=== PATIENT | female | born 1940 | race Caucasian/White ===

== ENCOUNTER 2017-02-27 14:05 | Inpatient (IN) | payer OTHER ==
[~2017-02-27] VITALS: Ht 162.6 cm; Wt 69.5 kg
[~2017-02-27 14:05] MED LIST: ALBUAER9 INH; AMLO-110 PO; METF-384 PO; METO50TA7 PO; OXYB10TA PO
--- NOTE | 2017-02-27 14:34 | EMERGENCY ROOM VISIT NOTE ---
History Report prepared by Arlyn: Stu Bond Under the Supervision of: Dr. Jerardo Gross M.D. First contact with patient: 14:16 Chief Complaint: CARDIAC ASSESSMENT Stated Complaint: CARIAC SYMPTOMS Nursing Triage Summary: triage note; pt reports she was seen at [facility] ed and left there to come to [facility]. pt reports right neck pain since yesterday. daugher reports "her troponin levels were elevated there and they wanted to transfer her somewhere but she wanted to come here because her production quality analyst is dr linares, they said they could send all her information here after she got here you guys just had to contact them." History of Present Illness The patient is a 76 year old female who presents to the Emergency Room from [facility] ED for a persistent need for a cardiac assessment that was discovered yesterday. She notes that she was seen in the [facility] ED yesterday for a stiff neck that started 2 mornings ago, and it was discovered that the patient had elevated troponin levels, and was told that she needed to be to [facility] to have a cardiac catheterization. The patient opted to come here since Dr. Linares is her production quality analyst. She was given 4 Aspirin in [place] before she left. The patient says that she was told that she was having a heart attack, with a left bundle branch block. She states that she has no history of atrial fibrillation. However, the patient has been noted to have had heart issues since she was 10 years old. The patient says that she is currently having the neck pain, and can barely move her head. Any confusion was denied on behalf of the patient by the patient's daughter. The patient denies any chest pain. The patient says that she has a history of dislocated vertebrae in her neck. Per the patient's family, the patient has been a bit short of breath, but the patient has a mild history of COPD. The patient's security intelligence analyst found that the patient had 5 little spots on her lungs, but it was thought to be environmental and not metastasis. The patient's family states that the patient had a cardiac catheterization here many years ago. She has never smoked cigarettes. The patient states that she has not responded to Nitro well in the past. Source of History: patient, family Onset: Discovered yesterday Position: other (heart ) Quality: other (need for cardiac assessment - elevated troponin, LBBB) Timing: other (persistent) Associated Symptoms: + SOB, No chest pain Note: Associated symptoms: Neck stiffness. Confusion denied. Review of Systems See HPI for pertinent positives & negatives. A total of 10 systems reviewed and were otherwise negative. Past Medical & Surgical Medical Problems: (1) 2nd degree AV block (2) Dislocated cervical vertebra (3) Heart disease (4) Hx of cardiac cath Family History Family history omitted secondary to patient's advanced age. Social History Smoking Status: Never Smoker Marital Status: Occupation Status: retired Current/Historical Medications Scheduled Albuterol Hfa (Ventolin Hfa), 2 PUFFS INH Q4H Amlodipine (Norvasc), 5 MG PO DAILY Metformin Hcl (Glucophage), 1,000 MG PO BID Metoprolol Succ (Toprol Xl) (Toprol-Xl), 50 MG PO BID Oxybutynin Chloride Er (Ditropan Xl), 10 MG PO DAILY Rosuvastatin Calcium (Crestor), 5 MG PO QOD Miscellaneous Medications Letrozole (Femara), 2.5 MG PO Allergies Coded Allergies: Iodine (Verified Allergy, Unknown, HIVES, 07/01/14) Niacin (Verified Allergy, Unknown, HIVES, 07/01/14) SHELLFISH (Verified Allergy, Unknown, HIVES, 07/01/14) Physical Exam Vital Signs Date Time Temp Pulse Resp B/P (MAP) Pulse Ox O2 Delivery O2 Flow Rate FiO2 02/27/17 16:40 66 16 113/62 97 Room Air 02/27/17 15:12 36.5 82 18 150/116 97 Room Air 02/27/17 15:05 63 16 150/116 98 Room Air 02/27/17 14:33 60 02/27/17 14:11 36.5 73 18 147/77 96 Room Air Physical Exam GENERAL: Patient is a healthy-appearing well-nourished 76 year old female. HEAD: Normocephalic atraumatic EYES: Ocular movements intact pupils equal and react to light OROPHARYNX mucous membranes are moist no exudates present no erythema or edema present NECK: Supple no nuchal rigidity CHEST: Good equal expansion LUNGS: Clear and equal to auscultation CARDIAC: Normal S1 and S2 ABDOMEN: Soft nontender no guarding BACK: No CVA tenderness EXTREMITIES: No pain upon palpation normal muscle strength in all groups no clubbing cyanosis or edema NEURO: Patient is following commands and answering questions appropriately. Alert and oriented x3 Cranial Nerves 2-12 grossly intact Medical Decision & Procedures ER Provider Diagnostic Interpretation: X-ray results as stated below per interpretation by me and the radiologist: CHEST ONE VIEW PORTABLE HISTORY: 76 years-old Female CHEST PAIN acute atypical chest pain. Initial exam. COMPARISON: None available. TECHNIQUE: Portable upright AP view of the chest FINDINGS: Cardiomediastinal and hilar silhouettes are within normal limits. There is no pneumothorax, pleural effusion, focal airspace consolidation or overt pulmonary edema. There is atherosclerosis of the aorta. Bones are grossly intact. 10 mm calcification adjacent to greater tuberosity left humerus suggests calcific tendinosis or calcific bursitis. IMPRESSION: No acute cardiopulmonary process The above report was generated using voice recognition software. It may contain grammatical, syntax or spelling errors. Electronically signed by: Nicholas Nunes M.D. 02/27/2017 2:47 PM Dictated Date/Time: 02/27/2017 2:45 PM Laboratory Results 02/27/17 14:30 Red Blood Count 4.56, Mean Corpuscular Volume 88.6, Mean Corpuscular Hemoglobin 31.1, Mean Corpuscular Hemoglobin Concent 35.1, Mean Platelet Volume 11.1, Neutrophils (%) (Auto) 73.7, Lymphocytes (%) (Auto) 14.1, Monocytes (%) (Auto) 8.9, Eosinophils (%) (Auto) 2.5, Basophils (%) (Auto) 0.5, Neutrophils # (Auto) 7.52, Lymphocytes # (Auto) 1.44, Monocytes # (Auto) 0.91, Eosinophils # (Auto) 0.26, Basophils # (Auto) 0.05 02/27/17 14:30 Test 02/27/17 14:30 White Blood Count 10.21 K/uL (4.8-10.8) Red Blood Count 4.56 M/uL (4.2-5.4) Hemoglobin 14.2 g/dL (12.0-16.0) Hematocrit 40.4 % (37-47) Mean Corpuscular Volume 88.6 fL (80-100) Mean Corpuscular Hemoglobin 31.1 pg (25-34) Mean Corpuscular Hemoglobin Concent 35.1 g/dl (32-36) Platelet Count 316 K/uL (130-400) Mean Platelet Volume 11.1 fL (7.4-10.4) Neutrophils (%) (Auto) 73.7 % Lymphocytes (%) (Auto) 14.1 % Monocytes (%) (Auto) 8.9 % Eosinophils (%) (Auto) 2.5 % Basophils (%) (Auto) 0.5 % Neutrophils # (Auto) 7.52 K/uL (1.4-6.5) Lymphocytes # (Auto) 1.44 K/uL (1.2-3.4) Monocytes # (Auto) 0.91 K/uL (0.11-0.59) Eosinophils # (Auto) 0.26 K/uL (0-0.5) Basophils # (Auto) 0.05 K/uL (0-0.2) RDW Standard Deviation 44.6 fL (36.4-46.3) RDW Coefficient of Variation 13.7 % (11.5-14.5) Immature Granulocyte % (Auto) 0.3 % Immature Granulocyte # (Auto) 0.03 K/uL (0.00-0.02) Anion Gap 8.0 mmol/L (3-11) Est Creatinine Clear Calc Drug Dose 53.8 ml/min Estimated GFR () 76.1 Estimated GFR (Non- 65.6 BUN/Creatinine Ratio 16.5 (10-20) Calcium Level 9.5 mg/dl (8.5-10.1) Total Bilirubin 0.7 mg/dl (0.2-1) Direct Bilirubin 0.1 mg/dl (0-0.2) Aspartate Amino Transf (AST/SGOT) 14 U/L (15-37) Alanine Aminotransferase (ALT/SGPT) 17 U/L (12-78) Alkaline Phosphatase 137 U/L (45-117) Total Creatine Kinase 59 U/L (26-192) Creatine Kinase MB 0.6 ng/ml (0.5-3.6) Creatine Kinase MB Ratio 1.0 (0-3.0) Troponin I 0.088 ng/ml (0-0.045) Total Protein 8.3 gm/dl (6.4-8.2) Albumin 3.7 gm/dl (3.4-5.0) Lipase 148 U/L (73-393) Labs reviewed by ED physician. Medications Administered Medications (Trade) Dose Ordered Sig/Abe Route Start Time Stop Time Status Last Admin Dose Admin Hydromorphone HCl (Dilaudid Inj) 0.5 mg NOW STAT IV 02/27/17 15:56 02/27/17 15:57 DC 02/27/17 16:19 0.5 MG Ondansetron HCl (Zofran Inj) 4 mg NOW STAT IV 02/27/17 15:56 02/27/17 15:57 DC 02/27/17 16:19 4 MG ECG Indication: other (cardiac assessment) Rate (beats per minute): 45 Rhythm: sinus bradycardia (with second degree block) Findings: LBBB ED Course 1417: Past medical records reviewed. The patient was evaluated in room A2. A complete history and physical examination was performed. 1438: I discussed the patient with Dr. Vijay Serrano cardiology. 1556: Ordered Zofran Inj 4 mg IV, Dilaudid Inj 0.5 mg IV. 1557: Upon reexamination the patient is resting comfortably. I discussed results and treatment plan with the patient. She verbalizes agreement and understanding. The patient will be evaluated for further management. 1602: I discussed the patient with Dr. Ridge Serrano mall manager - she will evaluate the patient for further treatment. Medical Decision Differential diagnosis: Etiologies such as cardiac ischemia, aortic dissection, pulmonary embolism, pneumonia, pneumothorax, musculoskeletal, infections, pericarditis, myocarditis , esophageal rupture, gastrointestinal, as well as others were entertained. This is a 76-year-old female that left from [facility] AGAINST MEDICAL ADVICE to come to [facility]. The patient states she has been having neck pain since she woke up yesterday. She does have an elevation in her troponin. She was given aspirin at [place]. The patient is a patient of Dr. Gusman and he was consulted. I did discuss the case with the hospitalist service who agreed to admit the patient. Medication Reconcilliation Current Medication List: was personally reviewed by me Blood Pressure Screening Patient's blood pressure: Elevated blood pressure Referred to mall manager. Consults Time Called: 1437 Consulting Physician: Dr. Vijay Serrano cardiology Returned Call: 1438 I discussed the patient with Dr. Vijay Serrano cardiology. Additional Consults: Time Called: 1600 Consulted Physician: Dr. Ridge Serrano mall manager Returned Call: 1602 Additional Comments: I discussed the patient with Dr. Ridge Serrano mall manager - she will evaluate the patient for further treatment. Impression Primary Impression: Neck pain Scribe Attestation The scribe's documentation has been prepared under my direction and personally reviewed by me in its entirety. I confirm that the note above accurately reflects all work, treatment, procedures, and medical decision making performed by me. Departure Information Dispostion Being Evaluated By Hospitalist Referrals Reuben Huffman M.D. (PCP) Patient Instructions [facility]
[2017-02-27 14:44] LABS: BASO % 0.5 %; BASO ABS # 0.05 K/uL (0-0.2); COMPLETE YES; EOS % 2.5 %; HEMATOCRIT 40.4 % (37-47); IG% 0.3 %; LYMPH % 14.1 %; LYMPH ABS # 1.44 K/uL (1.2-3.4); MEAN CELL VOLUME 88.6 fL (80-100); MEAN CORPUSCULAR HEMOGLOBIN 31.1 pg (25-34); MEAN CORPUSCULAR HGB CONC 35.1 g/dl (32-36); MEAN PLATELET VOLUME 11.1 fL (7.4-10.4); MONO % 8.9 %; NEUT % 73.7 %; PLATELET COUNT 316 K/uL (130-400); RED BLOOD COUNT 4.56 M/uL (4.2-5.4); WHITE BLOOD COUNT 10.21 K/uL (4.8-10.8)
--- NOTE | 2017-02-27 14:49 | DIAGNOSTIC IMAGING REPORT ---
CHEST ONE VIEW PORTABLE HISTORY: 76 years-old Female CHEST PAIN acute atypical chest pain. Initial exam. COMPARISON: None available. TECHNIQUE: Portable upright AP view of the chest FINDINGS: Cardiomediastinal and hilar silhouettes are within normal limits. There is no pneumothorax, pleural effusion, focal airspace consolidation or overt pulmonary edema. There is atherosclerosis of the aorta. Bones are grossly intact. 10 mm calcification adjacent to greater tuberosity left humerus suggests calcific tendinosis or calcific bursitis. IMPRESSION: No acute cardiopulmonary process The above report was generated using voice recognition software. It may contain grammatical, syntax or spelling errors. Electronically signed by: Nicholas Nunes M.D. 02/27/2017 2:47 PM Dictated Date/Time: 02/27/2017 2:45 PM
[2017-02-27] MEDS ORDERED: VNTHFA/IN INH (14:54)
[2017-02-27 14:59] LABS: BUN/CREATININE RATIO 16.5 (10-20); CALCIUM 9.5 mg/dl (8.5-10.1); CREATININE 0.86 mg/dl (0.60-1.20); POTASSIUM 3.8 mmol/L (3.5-5.1)
[2017-02-27 15:12] VITALS: BP 150/116; PULSE 82; TEMP 36.5; O2SAT 97; Ht 162.6 cm; Wt 69.5 kg
[2017-02-27] MEDS ORDERED: HYDROmorphone INJ 0.5 MG/0.5 ML SYR IV STA (15:56)
[2017-02-27] MEDS ORDERED: ONDANSETRON INJ 2 MG/ML 2 ML VIAL IV STA (15:56)
--- NOTE | 2017-02-27 16:46 | ECHOCARDIOGRAM REPORT ---
*NOTICE TO RECEIVING [employer] AGENCY This information is strictly Confidential and protected under [place] law. [place] law prohibits you from making any further disclosure of this information unless further disclosure is expressly permitted by the written consent of the person to whom it pertains or is authorized by law. A general authorization for the release of medical or other information is not sufficient for this purpose. Hospital accepts no responsibility if the information is made available to any other person, INCLUDING THE PATIENT. Interpretation Summary * Name: JEAN PAUL MIRZA Study Date: 02/27/2017 03:35 PM BP: 150/116 mmHg * Patient Location: [facility] HR: 76 * : 1940 (M/d/yyy) Gender: Female Height: 64 in * Age: 76 yrs Ethnicity: CA Weight: 156 lb * Ordering Physician: Juan Linares * Referring Physician: Self, Referred * Performed By: Vianey Galeano RCS * * Reason For Study: LV FUNCTION * BSA: 1.8 m2 * -- Conclusions -- * The left ventricle is normal in size. * The echo findings are consistent with hypertrophic cardiomyopathy. * There is severe asymmetric left ventricular hypertrophy involving the septum. * The echo findings are consistent with left ventricular outflow obstruction with peak LVOT velocity of 5.1 m/sec. * There is systolic anterior motion of the mitral valve. * The aortic valve opens well. * There is mild mitral regurgitation. * The aortic root is normal size. * Ascending aorta of normal dimension * There is no pericardial effusion. Procedure Details * A complete two-dimensional transthoracic echocardiogram was performed (2D, M-mode, Doppler and color flow Doppler). Left Ventricle * The left ventricle is normal in size. * There is severe asymmetric left ventricular hypertrophy. * The echo findings are consistent with hypertrophic cardiomyopathy. * The echo findings are consistent with left ventricular outflow obstruction. * Left ventricular systolic function is normal. * Ejection Fraction = 60-65%. * Septal motion is consistent with conduction abnormality. * No regional wall motion abnormalities noted. Right Ventricle * The right ventricle is normal in size and function. Atria * The left atrium is mildly dilated. * Right atrial size is normal. * No ASD detected; PFO is not assessed. Mitral Valve * There is systolic anterior motion of the mitral valve. * There is mild mitral annular calcification. * There is no mitral valve stenosis. * There is mild mitral regurgitation. Tricuspid Valve * The tricuspid valve anatomy is normal. * There is no tricuspid stenosis. * There is trace tricuspid regurgitation. Aortic Valve * The aortic valve is trileaflet. * The aortic valve opens well. * No hemodynamically significant valvular aortic stenosis. * No aortic regurgitation is present. Pulmonic Valve * The pulmonic valve is not well visualized. Great Vessels * The aortic root is normal size. * Ascending aorta of normal dimension Pericardium/Pleural * There is no pericardial effusion. Great Vessels * Normal inferior vena cava diameter and respiratory variation suggests normal central venous pressure. Left Ventricular Diastolic Function * Grade I diastolic dysfunction, (abnormal relaxation pattern). MMode 2D Measurements and Calculations IVSd 2.2 cm IVSs 2.1 cm LVIDd 3.3 cm LVIDs 2.1 cm LVPWd 1.8 cm LVPWs 2.1 cm IVS/LVPW 1.2 FS 34.4 % EDV(Teich) 43.3 ml ESV(Teich) 15.3 ml EF(Teich) 64.8 % EDV(cubed) 35.1 ml ESV(cubed) 9.9 ml EF(cubed) 71.8 % % IVS thick -0.24 % % LVPW thick 15.5 % LV mass(C)d 283.8 grams LV mass(C)dI 161.3 grams/m\S\2 LV mass(C)s 206.5 grams LV mass(C)sI 117.3 grams/m\S\2 SV(Teich) 28.0 ml SI(Teich) 15.9 ml/m\S\2 SV(cubed) 25.2 ml SI(cubed) 14.3 ml/m\S\2 Ao root diam 3.5 cm Ao root area 9.5 cm\S\2 LA dimension 4.4 cm LA/Ao 1.3 LVOT diam 2.0 cm LVOT area 3.1 cm\S\2 Doppler Measurements and Calculations MV E max macho 115.1 cm/sec MV A max macho 152.3 cm/sec MV E/A 0.76 MV P1/2t max macho 134.2 cm/sec MV P1/2t 70.9 msec MVA(P1/2t) 3.1 cm\S\2 MV dec slope 554.4 cm/sec\S\2 MV dec time 0.24 sec Ao V2 max 516.8 cm/sec Ao max PG 106.8 mmHg Ao max PG (full) 80.0 mmHg Ao V2 mean 348.5 cm/sec Ao mean PG 57.5 mmHg Ao mean PG (full) 44.0 mmHg Ao V2 VTI 109.7 cm STEPHANE(I,A) 1.5 cm\S\2 STEPHANE(I,D) 1.5 cm\S\2 STEPHANE(V,A) 1.5 cm\S\2 STEPHANE(V,D) 1.5 cm\S\2 AI max macho 367.2 cm/sec AI max PG 53.9 mmHg AI dec slope 174.8 cm/sec\S\2 AI P1/2t 615.4 msec LV V1 max PG 26.9 mmHg LV V1 mean PG 13.5 mmHg LV V1 max 259.2 cm/sec LV V1 mean 168.1 cm/sec LV V1 VTI 52.1 cm MR max macho 698.4 cm/sec MR max PG 195.2 mmHg SV(Ao) 1040.0 ml SI(Ao) 590.9 ml/m\S\2 SV(LVOT) 160.6 ml SI(LVOT) 91.2 ml/m\S\2 PA V2 max 116.5 cm/sec PA max PG 5.4 mmHg TR max macho 282.5 cm/sec
[2017-02-27] MEDS ORDERED: POLYETHYLENE (MIRALAX) 17 GM PACK PO PRN (17:00)
[2017-02-27] MEDS ORDERED: ONDANSETRON INJ 2 MG/ML 2 ML VIAL IV PRN (17:00)
[2017-02-27] MEDS ORDERED: ROSU5TAB PO (17:01)
--- NOTE | 2017-02-27 17:24 | History and Physical ---
History & Physical Date & Time of Service: Feb 27, 2017 at 17:05 Chief Complaint: Cariac Symptoms Primary Care Physician: Reuben Huffman M.D. History of Present Illness Source: patient, family Patient is a pleasant 76 yo female who came to the ER after being seen at [facility] ER and having found an elevated troponin. The patient preferred to come here as her Electromechanical Technologist Dr. Linares is here. She was actually seen at [place] for neck pain, which she gets occasionally but was particularly bothersome today. 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 No prior imaging of her neck in outpatient records. The patient states the pain was symmetric on the back of her neck up to the base of her skull, and also paraspinal and along bilateral SCM muscles. She feels the pain has improved slightly since being receiving pain medication. While at [place] the patient had labs and an EKG and there was concern over LBBB with an elevated troponin, and they were planning to transfer the patient to [place] for Cardiac evaluation when the patient and her family left and came to [facility] as mentioned above. Otherwise the patient has no complaints of CP, SOB, palpitations, arm pain, diaphoresis, cough, BENSON, lightheadedness. She reports occasional dizziness as with abrupt positional changes but denies any near syncope or falls. No recent infection. No new medication changes. Has been tolerating PO without and N/V or changes to bowel habit. Denies any melena or hematochezia. Denies any urinary symptoms. She denies any pain or weakness radiating down her extremities. No bowel or bladder incontinence. No gait dysfunction. Past Medical/Surgical History Medical Problems: (1) Dislocated cervical vertebra Status: Chronic (2) Heart disease Status: Chronic (3) Hx of cardiac cath Status: Resolved Social History Smoking Status: Never Smoker Marital Status: Occupational Status: retired Multi-Drug Resistant Organisms History of MDRO: No Allergies Coded Allergies: Iodine (Verified Allergy, Unknown, HIVES, 07/01/14) Niacin (Verified Allergy, Unknown, HIVES, 07/01/14) SHELLFISH (Verified Allergy, Unknown, HIVES, 07/01/14) Home Medications Scheduled Albuterol Hfa (Ventolin Hfa), 2 PUFFS INH Q4H Amlodipine (Norvasc), 5 MG PO DAILY Metformin Hcl (Glucophage), 1,000 MG PO BID Metoprolol Succ (Toprol Xl) (Toprol-Xl), 50 MG PO BID Oxybutynin Chloride Er (Ditropan Xl), 10 MG PO DAILY Rosuvastatin Calcium (Crestor), 5 MG PO QOD Miscellaneous Medications Letrozole (Femara), 2.5 MG PO Review of Systems 10 systems were reviewed, please HPI for ROS. All other systems reviewed and are negative. Physical Exam Vital Signs Date Time Temp Pulse Resp B/P (MAP) Pulse Ox O2 Delivery O2 Flow Rate FiO2 02/27/17 16:40 66 16 113/62 97 Room Air 02/27/17 15:12 36.5 82 18 150/116 97 Room Air 02/27/17 15:05 63 16 150/116 98 Room Air 02/27/17 14:33 60 02/27/17 14:11 36.5 73 18 147/77 96 Room Air General Appearance: WD/WN, no apparent distress Head: normocephalic, atraumatic Eyes: PERRL, EOMI, sclerae normal ENT: hearing grossly normal Neck: supple, no adenopathy, no JVD, trachea midline Respiratory/Chest: chest non-tender, lungs clear, normal breath sounds, no respiratory distress, no accessory muscle use Cardiovascular: no edema, no gallop, no JVD, normal peripheral pulses, + bradycardia, + systolic murmur, + irregularly irregular Abdomen/GI: normal bowel sounds, non tender, soft, no organomegaly Back: no CVA tenderness, no muscle spasm, + decreased range of motion, + paravertebral tenderness (cervical spine) Extremities/Musculoskelatal: no calf tenderness, normal capillary refill, no pedal edema Neurologic/Psych: no motor/sensory deficits, alert, normal mood/affect, oriented x 3 Skin: normal color, warm/dry, no rash Diagnostics Laboratory Results Results Past 24 Hours Test 02/27/17 14:30 Range/Units White Blood Count 10.21 4.8-10.8 K/uL Red Blood Count 4.56 4.2-5.4 M/uL Hemoglobin 14.2 12.0-16.0 g/dL Hematocrit 40.4 37-47 % Mean Corpuscular Volume 88.6 80-100 fL Mean Corpuscular Hemoglobin 31.1 25-34 pg Mean Corpuscular Hemoglobin Concent 35.1 32-36 g/dl Platelet Count 316 130-400 K/uL Mean Platelet Volume 11.1 7.4-10.4 fL Neutrophils (%) (Auto) 73.7 % Lymphocytes (%) (Auto) 14.1 % Monocytes (%) (Auto) 8.9 % Eosinophils (%) (Auto) 2.5 % Basophils (%) (Auto) 0.5 % Neutrophils # (Auto) 7.52 1.4-6.5 K/uL Lymphocytes # (Auto) 1.44 1.2-3.4 K/uL Monocytes # (Auto) 0.91 0.11-0.59 K/uL Eosinophils # (Auto) 0.26 0-0.5 K/uL Basophils # (Auto) 0.05 0-0.2 K/uL RDW Standard Deviation 44.6 36.4-46.3 fL RDW Coefficient of Variation 13.7 11.5-14.5 % Immature Granulocyte % (Auto) 0.3 % Immature Granulocyte # (Auto) 0.03 0.00-0.02 K/uL Sodium Level 137 136-145 mmol/L Potassium Level 3.8 3.5-5.1 mmol/L Chloride Level 106 98-107 mmol/L Carbon Dioxide Level 23 21-32 mmol/L Anion Gap 8.0 3-11 mmol/L Blood Urea Nitrogen 14 7-18 mg/dl Creatinine 0.86 0.60-1.20 mg/dl Est Creatinine Clear Calc Drug Dose 53.8 ml/min Estimated GFR () 76.1 Estimated GFR (Non- 65.6 BUN/Creatinine Ratio 16.5 10-20 Random Glucose 142 70-99 mg/dl Calcium Level 9.5 8.5-10.1 mg/dl Total Bilirubin 0.7 0.2-1 mg/dl Direct Bilirubin 0.1 0-0.2 mg/dl Aspartate Amino Transf (AST/SGOT) 14 15-37 U/L Alanine Aminotransferase (ALT/SGPT) 17 12-78 U/L Alkaline Phosphatase 137 45-117 U/L Total Creatine Kinase 59 26-192 U/L Creatine Kinase MB 0.6 0.5-3.6 ng/ml Creatine Kinase MB Ratio 1.0 0-3.0 Troponin I 0.088 0-0.045 ng/ml Total Protein 8.3 6.4-8.2 gm/dl Albumin 3.7 3.4-5.0 gm/dl Lipase 148 73-393 U/L Impression Assessment and Plan NECK PAIN: -per patient she has previous history of vertebral dislocation -obtain xrays -pain control -PT AV BLOCK: -intermittent second degree and high grade first degree AV block -Metoprolol dose decreased to once daily per Cardio -monitor in tele DM TYPE II: -monitor BSG -hold metformin -can cover with low dose lantus + SSI if needed HOCM: -has been followed by Cardiology as outpatient for many years -TTE has remained stable -no related symptoms at this time ELEVATED TROPONIN: -obtain serial CM -Cardiology consulted, appreciate recommendations -had TTE today by Dr. Linares which showed EF 60-65% and findings consistent with HOCM -EKG with LBBB which is chronic for patient HTN: -continue amlodipine DYSLIPIDEMIA: -continue statin BREAST CANCER: -patient takes Femara which will be continued -had imaging recently that was negative -outpatient follow up Level of Care Telemetry Advanced Directives Existing Living Will: No Existing Power of Sales Consulting Director: No Resuscitation Status FULL RESUSCITATION (If meaningful chance of recovery exists, patient would like resuscitation attempted but does not want prolonged life support) VTE Prophylaxis VTE Risk Assessment Done? Y/N: Yes Risk Level: Moderate
[2017-02-27 18:00] VITALS: BP 169/79; PULSE 61; TEMP 36.5; O2SAT 94
[2017-02-27 18:28] LABS: PARTIAL THROMBOPLASTIN RATIO 1.1; PROTHROMBIN TIME (PATIENT) 11.1 SECONDS (9.0-12.0)
[2017-02-27] MEDS ORDERED: FMR25 PO (19:46)
[2017-02-27] MEDS: ACETAMINOPHEN 325 MG TAB PO PRN ×2 (20:05→23:40)
[2017-02-27] MEDS: ENOXAPARIN 40 MG/0.4 ML SYR SC SCH (20:06)
[2017-02-27 20:10] VITALS: BP 187/87; PULSE 67; TEMP 36.4; O2SAT 97
--- NOTE | 2017-02-27 20:22 | DIAGNOSTIC IMAGING REPORT ---
CERVICAL SPINE 2 OR 3 VIEWS HISTORY: 76 years-old Female neck pain, arthritis chronic neck pain with history of arthritis. Initial exam. COMPARISON: Chest radiograph the same day TECHNIQUE: Frontal, lateral and odontoid views of cervical spine. FINDINGS: The seventh vertebral segment is not well seen secondary to obscuring soft tissue from patient's shoulder. Stepwise anterolisthesis of 2 mm is seen of C3 on C4, C4 on C5 and C5 on C6, likely secondary to underlying multilevel severe facet arthropathy. Severe intervertebral disc space narrowing noted at C6-C7. No acute fracture or dislocation is identified. The odontoid process is sub-visualized, however appears intact. There is no prevertebral soft tissue swelling. Soft tissue calcifications about the neck suggest vascular calcifications. The lung apices are clear. IMPRESSION: 1. No acute cervical spine fracture or subluxation. 2. Multiple levels demonstrate anterolisthesis of a few millimeters as above, likely secondary to underlying severe multilevel facet arthropathy. 3. Severe intervertebral disc space narrowing at C6-C7. The above report was generated using voice recognition software. It may contain grammatical, syntax or spelling errors. Electronically signed by: Nicholas Nunes M.D. 02/27/2017 8:21 PM Dictated Date/Time: 02/27/2017 8:18 PM
[2017-02-27] MEDS: ALBUTEROL HFA 8 GM INHALER INH SCH ×2 (20:25→23:33)
[2017-02-27] MEDS ORDERED: METOPROLOL SUCC 50MG EXT REL TAB PO SCH (21:00)
[2017-02-27] MEDS ORDERED: GLUCAGON FOR INJ 1 MG VIAL SQ PRN (22:30)
[2017-02-27] MEDS ORDERED: GLUCOSE 40% GEL 15 GM TUBE PO PRN (22:30)
[2017-02-27] MEDS ORDERED: GLUCOSE 10 TABS/TUBE PO PRN (22:30)
[2017-02-27] MEDS ORDERED: DEXTROSE 50% 50 ML SYR IV PRN (22:30)
[2017-02-27 23:40] VITALS: BP_SYST 128; BP_DIAS 67; BP_DIAS 69; PULSE 51; TEMP 36.4; O2SAT 97
[2017-02-27 23:59] VITALS: O2SAT 97
[2017-02-28] VITALS (13 sets, daily range): BP systolic 96–147; BP diastolic 56–96; PULSE 49–84; TEMP 36.4–37.2; O2SAT 94–98
--- NOTE | 2017-02-28 00:33 | CARDIOLOGY CONSULTATION ---
DATE OF CONSULTATION: 02/27/2017 REFERRING PHYSICIAN: Dr. Gross. PRIMARY CARE PHYSICIAN: Dr. Huffman. INDICATIONS: Abnormal EKG, elevated troponin and neck pain. HISTORY OF PRESENT ILLNESS: The patient is a 76-year-old female whose history is notable for chronic left bundle branch block, hypertrophic obstructive cardiomyopathy, longstanding hypertension, and prior chest pain and cardiac catheterization with nonobstructive minimal coronary atherosclerosis in 2006. Last stress testing negative in 2011. The patient presents now, having initially been seen at [facility]. She notes yesterday having awakened from sleep with extremely sore and stiff neck, unable to turn her head from side to side. Pain persisted throughout the day, last night and then this morning to the point where she was extremely uncomfortable and presented to the Emergency Room. Evaluation there included an EKG, which demonstrated her chronic left bundle branch block and per report, troponins were elevated. She was recommended she be transferred for urgent heart catheterization at [facility], which the patient declined. She left A and presented here at [facility] for further evaluation, continued to complain of severe neck pain with minimal motion and turning of her head with focal tenderness over the posterior occiput and trapezius. Laboratory studies here demonstrated minimal elevation of her troponin. Telemetry does demonstrate sinus rhythm with first degree AV block, intermittent second degree AV block with type 1 configuration (Wenckebach) as well as 2:1 AV conduction. The patient denies any recent fevers, chills, sweats. Notes no cough, hoarseness, wheeze or hemoptysis. She was aware of her exertional dyspnea earlier this summer during the high periods of humidity, which resolved. She notes no syncope or near syncope, is aware of occasional dizziness and lightheadedness. Notes no specific chest pain or discomfort. Notes no orthopnea or worsening edema. Notes no severe rash or tick exposure. ALLERGIES: IODINE, NIACIN AND SHELLFISH. MEDICATIONS: Prior to hospitalization were amlodipine 5 mg p.o. q. day, Ditropan 10 mg q. day, Toprol-XL 75 mg p.o. q. day, rosuvastatin 5 mg p.o. q. day, metformin 1000 mg twice per day, albuterol inhaler 2 puffs q. 4 hours, Femara 2.5 mg q. day, and ibuprofen p.r.n. PAST SURGICAL HISTORY: Notable for prior tubal ligation. FAMILY HISTORY: Notable for brother with coronary artery disease and pacemaker. Mother at the age 87 with a history of angina. SOCIAL HISTORY: The patient is a nonsmoker and nondrinker. 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 PHYSICAL EXAMINATION: VITAL SIGNS: Heart rate is 72. Blood pressure was elevated on initial presentation at 147/77 and repeat was 150/116. HEENT: Normocephalic and atraumatic. Pupils equal, round and reactive to light and accommodation. Nares without discharge. Throat was clear. NECK: Notable for severe tenderness posteriorly on palpation, marked tenderness with movement of the head. Carotid pulses were equal. There is no carotid bruit. There is referred murmur to the base of carotids. LUNGS: Clear to auscultation. CARDIOVASCULAR: Regular with a harsh grade 3/6 systolic ejection murmur augmented with Valsalva. ABDOMEN: Soft and nontender. There is no palpable hepatosplenomegaly. There is no hepatojugular reflux. EXTREMITIES: Without cyanosis or clubbing. There is no peripheral edema. There are intact distal pulses. There is no brachiofemoral delay. NEUROLOGIC: The patient is answering questions and moving extremities with strength. LABORATORY STUDIES: Reveal white cell count of 10.2, hemoglobin is 14.2, and hematocrit is 40.4. Sodium is 137, potassium is 3.8, chloride is 106, bicarb is 23, BUN is 14, creatinine 0.86, and glucose is 142. Troponin I is 0.08. CK and MB fractions are normal. Lipase is 148. Chest x-ray reveals no infiltrate or edema. Troponin is elevated at 0.088. Review of the EKG reveals sinus rhythm with chronic left bundle branch block. There is a type 2 second degree AV block, appears to be Mobitz 1 with occasional ventricular ectopic beats with intermittent 2:1 AV conduction on EKG and on telemetry. Echocardiogram performed at bedside, done under my direction demonstrates severe left ventricular hypertrophy with obstructive outflow tract velocities, consistent with the patient's history of hypertrophic cardiomyopathy. There is a mildly dyssynergic contraction pattern of the septum. Ejection fraction was normal with no segmental or regional wall motion abnormalities present. There is no pericardial effusion. Data arriving from [facility] included CT scan of the head, which was unremarkable. CT scan of the cervical spine, which demonstrated hypertrophic degenerative arthropathy with bulging C5-C6 and C6-C7 intervertebral disks. IMPRESSION: A 76-year-old female who presented initially to [facility] Emergency Room and now at [facility] with predominant symptoms of severe neck pain with torticollis, beginning greater than 24 hours prior to presentation with unrelenting discomfort. EKG done in both facilities demonstrates chronic left bundle branch block with rhythm demonstrating intermittent second degree AV block with 2:1 conduction as well as Mobitz type 1 Wenckebach. Troponins are mildly elevated at 0.088. Currently denies any chest pain or discomfort. Pain is deliberately reproduced with movement of the head and palpation of posterior neck. Symptoms do not appear to be cardiac in etiology, though given intermittent AV conduction, would recommend telemetry during pain control for discomfort. Echocardiogram has been reviewed. There are no wall motion abnormalities, specifically inferior wall motion abnormalities, there was a concern raised during EKG at [facility]. The patient did not take her amlodipine today and will be administered. Would recommend reducing dose of Toprol to 50 mg per day. If high degree AV block progresses, the patient may warrant pacemaker insertion. We will follow the patient in the hospital.
[2017-02-28 02:51] LABS: CKMB/CK RATIO 1.9 (0-3.0)
[2017-02-28] MEDS: ALBUTEROL HFA 8 GM INHALER INH SCH ×5 (05:42→21:18)
[2017-02-28 05:51] LABS: HEMATOCRIT 35.8 % (37-47); MEAN CELL VOLUME 89.5 fL (80-100); MEAN CORPUSCULAR HEMOGLOBIN 31.5 pg (25-34); MEAN CORPUSCULAR HGB CONC 35.2 g/dl (32-36); MEAN PLATELET VOLUME 10.9 fL (7.4-10.4); PLATELET COUNT 282 K/uL (130-400); WHITE BLOOD COUNT 7.26 K/uL (4.8-10.8)
[2017-02-28 06:26] LABS: BUN/CREATININE RATIO 21.7 (10-20); CALCIUM 9.1 mg/dl (8.5-10.1); CREATININE 0.78 mg/dl (0.60-1.20)
[2017-02-28] MEDS: INSULIN ASPART 100 UNITS/ML 3 ML PEN SC SCH ×4 (07:44→21:21)
[2017-02-28] MEDS ORDERED: METOPROLOL SUCC 50MG EXT REL TAB PO SCH (09:00)
[2017-02-28] MEDS: OXYBUTYNIN CHLORIDE 5 MG TABCR PO SCH (09:19)
[2017-02-28] MEDS: AMLODIPINE BESYLATE 5 MG TAB PO SCH (09:19)
[2017-02-28] MEDS ORDERED: BUPIVACAINE 0.5 % 5 MG/1 ML MPF 30ML VIAL ONE (09:58)
[2017-02-28] MEDS ORDERED: BACITRACIN 50000 UNIT VIAL ONE (09:58)
[2017-02-28] MEDS ORDERED: LIDOCAINE HCL 1% 20 ML VIAL ONE (09:58)
--- NOTE | 2017-02-28 10:01 | Cardiology Follow-Up ---
Subjective General Date of Service: Feb 28, 2017. Chief Complaint: Neck pain Pt evaluation today including: conversation w/ patient, physical exam, chart review, lab review, review of studies, review of inpatient medication list History of Present Illness Patient seen and examined. Neck pain has improved but not resolved. No chest pain. No tachypalpitations. No dizziness. No syncope. + Chronic stable exertional dyspnea. No resting or nocturnal dyspnea. No fevers or chills. History of breast cancer on the left, status post lumpectomy, Femara treatment. Toprol XL decreased from 50 mg in the AM and 75 mg in the PM to 50 mg once a day on admission. Telemetry: Currently sinus rhythm at 60 bpm with a first degree AV block, chronic left bundle branch block. Review of her continuous quality assurance monitor final reveals sinus rhythm, sinus bradycardia with a first degree AV block, periods of type I and type II second degree AV block, and three episodes concerning for complete heart block. There are two rhythm strips that show a wide complex tachycardia over 100 bpm that appear to represent sinus tachycardia with the chronic left bundle branch block. February 27, 2017 TTE Interpretation Summary ([facility], as per Dr. Linares): The left ventricle is normal in size. The echo findings are consistent with hypertrophic cardiomyopathy. There is severe asymmetric left ventricular hypertrophy involving the septum. The echo findings are consistent with left ventricular outflow obstruction with peak LVOT velocity of 5.1 m/sec. There is systolic anterior motion of the mitral valve. The aortic valve opens well. There is mild mitral regurgitation. The aortic root is normal size. Ascending aorta of normal dimension. There is no pericardial effusion. Allergies Coded Allergies: Iodine (Verified Allergy, Unknown, HIVES, 07/01/14) Niacin (Verified Allergy, Unknown, HIVES, 07/01/14) SHELLFISH (Verified Allergy, Unknown, HIVES, 07/01/14) Social History Smoking Status: Never Smoker Hx Tobacco Use In Past Year?: No Hx Alcohol Use - Type And Amou: No Hx Substance Use - Type And Am: No Problem List Medical Problems: (1) Neck pain Status: Acute Physical Exam Vital Signs Last Vital Signs Documentation Date Time Temp Pulse Resp B/P (MAP) Pulse Ox O2 Delivery O2 Flow Rate FiO2 02/28/17 08:08 96 Room Air 02/28/17 08:05 36.7 55 14 128/77 (94) Physical Exam Constitutional: General Apperance: heathly-appearing Level of Distress: NAD Psychiatric: Mental Status: active & alert Orientation: to time, to place, to person Memory: recent memory normal, remote memory normal Head: normocephalic, atraumatic Eyes: Pupils: PERRLA Lungs: Respiratory effort: no dyspnea Auscultation: breath sounds normal, no wheezing, no rales/crackles, no rhonchi, decreased breath sounds Cardiovascular: Heart Auscultation: bradycardia, III/ RAJNI Abdomen: Bowel Sounds: normal Inspection & Palpation: soft, non-distended, no masses Liver: non-tender Extremities: no cyanosis, no edema, no clubbing Neurologic: Cranial Nerves: grossly intact Assessment and Plan Assessment and Plan 76-year-old female with history of HOCM as well as left breast cancer, presenting on February 27, 2017 with predominant symptoms of severe musculoskeletal neck pain. EKG and telemetry demonstrate her known chronic left bundle branch block with telemetry revealing intermittent type I and type II second degree AV block as well as periods of what appears to be complete heart block despite reduction in beta-jesus dosing on admission. Patient requires ongoing use of AV romi blockers given her outflow obstruction. I have discussed findings with patient, non-HOCM indications for device implantation which may aid symptoms, dyspnea, that I suspect is secondary to her left ventricular outflow tract obstruction. Electrophysiology will be consulted with prior dosing of beta-jesus therapy to be reinstituted post device implantation. Further recommendations pending evaluation by Dr. Puentes as well as her ongoing hospitalization. Cardiology attending: Pt seen and examined, agree with above findings and assessment. Pt s/p dual chamber PPM placement, tolerated well. Currently without complaint, beta jesus restarted. Family at bedside, discussed need for relative screening for HOCM to all children and grandchildren. Cont metoprolol, may uptitrate as BP allows for further reduction of outflow tract obstruction. Monitor overnight. Laboratory Results Last 24 Hours Test 02/27/17 14:30 02/27/17 18:05 02/28/17 01:56 02/28/17 05:21 White Blood Count 10.21 K/uL 7.26 K/uL Red Blood Count 4.56 M/uL 4.00 M/uL Hemoglobin 14.2 g/dL 12.6 g/dL Hematocrit 40.4 % 35.8 % Mean Corpuscular Volume 88.6 fL 89.5 fL Mean Corpuscular Hemoglobin 31.1 pg 31.5 pg Mean Corpuscular Hemoglobin Concent 35.1 g/dl 35.2 g/dl Platelet Count 316 K/uL 282 K/uL Mean Platelet Volume 11.1 fL 10.9 fL Neutrophils (%) (Auto) 73.7 % Lymphocytes (%) (Auto) 14.1 % Monocytes (%) (Auto) 8.9 % Eosinophils (%) (Auto) 2.5 % Basophils (%) (Auto) 0.5 % Neutrophils # (Auto) 7.52 K/uL Lymphocytes # (Auto) 1.44 K/uL Monocytes # (Auto) 0.91 K/uL Eosinophils # (Auto) 0.26 K/uL Basophils # (Auto) 0.05 K/uL RDW Standard Deviation 44.6 fL 45.4 fL RDW Coefficient of Variation 13.7 % 13.6 % Immature Granulocyte % (Auto) 0.3 % Immature Granulocyte # (Auto) 0.03 K/uL Sodium Level 137 mmol/L 139 mmol/L Potassium Level 3.8 mmol/L 4.0 mmol/L Chloride Level 106 mmol/L 107 mmol/L Carbon Dioxide Level 23 mmol/L 25 mmol/L Anion Gap 8.0 mmol/L 7.0 mmol/L Blood Urea Nitrogen 14 mg/dl 17 mg/dl Creatinine 0.86 mg/dl 0.78 mg/dl Est Creatinine Clear Calc Drug Dose 53.8 ml/min 58.7 ml/min Estimated GFR () 76.1 85.6 Estimated GFR (Non- 65.6 73.8 BUN/Creatinine Ratio 16.5 21.7 Random Glucose 142 mg/dl 134 mg/dl Calcium Level 9.5 mg/dl 9.1 mg/dl Total Bilirubin 0.7 mg/dl Direct Bilirubin 0.1 mg/dl Aspartate Amino Transf (AST/SGOT) 14 U/L Alanine Aminotransferase (ALT/SGPT) 17 U/L Alkaline Phosphatase 137 U/L Total Creatine Kinase 59 U/L 42 U/L Creatine Kinase MB 0.6 ng/ml 0.8 ng/ml Creatine Kinase MB Ratio 1.0 1.9 Troponin I 0.088 ng/ml 0.094 ng/ml Total Protein 8.3 gm/dl Albumin 3.7 gm/dl Lipase 148 U/L Prothrombin Time 11.1 SECONDS Prothromb Time International Ratio 1.0 Activated Partial Thromboplast Time 28.0 SECONDS Partial Thromboplastin Ratio 1.1 Test 02/28/17 06:38 Bedside Glucose 132 mg/dl
--- NOTE | 2017-02-28 10:14 | History & Physical Bridge Note ---
H&P Re-Evaluation Bridge Note: I have examined the patient, reviewed the History & Physical and in the interval since the performance of the History & Physical I have noted the following changes of clinical significance: Pt with intermittent high degree AV block with underlying HOCM; will need high dose AVN blockers; for a permanent pacemaker.
--- NOTE | 2017-02-28 10:15 | Procedure Note ---
Pre-Mod Sedation Assessment General Date of Moderate Sedation: Feb 28, 2017. Vital Signs: Vital Signs Past 12 Hours Date Time Temp Pulse Resp B/P (MAP) Pulse Ox O2 Delivery O2 Flow Rate FiO2 02/28/17 09:32 56 127/71 (89) 02/28/17 08:08 96 Room Air 02/28/17 08:05 36.7 55 14 128/77 (94) Room Air 02/28/17 04:00 97 Room Air 02/28/17 03:35 36.8 49 18 96/56 (69) 98 Room Air 02/27/17 23:59 97 Room Air 02/27/17 23:40 36.4 51 18 128/69 (88) 97 Room Air Review Cardiovascular: + bradycardia, + systolic murmur Abdomen: soft Lungs: lungs clear Airway Class: II Pre-Sedation Airway Assessment Oral Cavity: Dentures Able to Visualize Vocal Cords: No Short Thick Neck: No Hx of Sleep Apnea: No Smoking Status: Never Smoker Mallampati Classification: Class II ASA Classification: Class II Procedure Planning Contraindications-for Mod Sed: None Yes Notes The planned sedation has been discussed with the patient and consent obtained. I have identified the patient, determined the appropriateness of sedation and have assessed the patient immediately prior to the procedure. All medicine(s) and interventions are by my order.
[2017-02-28] MEDS ORDERED: DiphenhydrAMINE HCL 50 MG/ML VIAL ONE (10:29)
[2017-02-28] MEDS ORDERED: FENTANYL CITRATE INJ 50 MCG/1 ML 2 ML VIAL ONE (10:29)
[2017-02-28] MEDS ORDERED: MIDAZOLAM HCL 5 MG/ML 1 ML VIAL ONE (10:29)
[2017-02-28] MEDS ORDERED: METHYLPREDNISOLONE 125 MG VIAL ONE (10:30)
[2017-02-28] MEDS ORDERED: RANITIDINE HCL 25 MG/ML INJ ONE (10:30)
[2017-02-28] MEDS ORDERED: KEFZOL SPECIAL PROCEDURE STOCK 1 GM ADDVIAL IV ONE (10:35)
[2017-02-28 10:56] LABS: THYROID STIMULATING HORMONE 3.07 uIu/ml (0.300-4.500)
[2017-02-28] MEDS ORDERED: NURSING VERBAL MED ORDER ONE (11:00)
--- NOTE | 2017-02-28 11:44 | Procedure Note ---
Post-Mod Sedation Assessment General Date of Moderate Sedation Feb 28, 2017. Vital Signs: Vital Signs Past 12 Hours Date Time Temp Pulse Resp B/P (MAP) Pulse Ox O2 Delivery O2 Flow Rate FiO2 02/28/17 09:32 56 127/71 (89) 02/28/17 08:08 96 Room Air 02/28/17 08:05 36.7 55 14 128/77 (94) Room Air 02/28/17 08:00 97 Room Air 02/28/17 04:00 97 Room Air 02/28/17 03:35 36.8 49 18 96/56 (69) 98 Room Air 02/27/17 23:59 97 Room Air Review - Discharge Criteria Vital Signs Stable: Yes Alert/Oriented/Conversant: Yes Returned to Baseline Mental St: Yes Nausea Absent/Minimal: Yes Pain/Discomfort/Absent/Minimal: Yes Normal/Baseline Respirations: Yes Active Bleeding?: No Pt Received D/C Instructions: N/A Prescriptions Given: None Specific Proced. D/C Criteria Distal Pulses Present (Cardiac: N/A Groin site assessed-Card Cath: N/A Voided Prior To Discharge: N/A Discharged Patients Adult Escort/Transportation: N/A
[2017-02-28] MEDS ORDERED: RANITIDINE IV ONE (11:45)
[2017-02-28] MEDS ORDERED: CEFAZOLIN 1000MG/55 ML D5W IV SCH (11:45)
[2017-02-28] MEDS ORDERED: DEXTROSE 5% IV ONE (11:45)
--- NOTE | 2017-02-28 11:47 | [facility] Post Operative Brief Note ---
Immediate Operative Summary Operative Date Feb 28, 2017. Pre-Operative Diagnosis INTERMITTENT 2ND DEGREE AV BLOCK AND CHB Post-Operative Diagnosis SAME Procedure(s) Performed DUAL CHAMBER RATE RESPONSIVE PERMANENT PACEMAKER WITH PERIPHERAL VENOGRAM Surgeon TEMO GAY Press Bucker Surgeon(s) NONE Estimated Blood Loss <10CC Findings SEE OFFICIAL REPORT Fluids (cc crystalloids) 250CC Specimens NONE Drains NONE Anesthesia 2MG VERSED AND 25MCG FENTATNYL Complication(s) None Disposition PCU
[2017-02-28] MEDS ORDERED: ACETAMINOPHEN 325 MG TAB PO PRN (12:00)
[2017-02-28] MEDS ORDERED: ACETAMINOPHEN/CODEINE 300/30MG TAB PO PRN (12:00)
[2017-02-28 14:30] LABS: LYME DISEASE AB IGG NEG (NEG); LYME DISEASE AB IGM NEG (NEG)
--- NOTE | 2017-02-28 14:50 | OPERATIVE REPORT ---
DATE OF OPERATION: 02/28/2017 PREOPERATIVE DIAGNOSIS: Intermittent high-degree heart block, underlying chronic left bundle branch block. POSTOPERATIVE DIAGNOSIS: Same. SURGEON: Dr. Jena Vega. TURN MACHINE OPERATOR: None. ANESTHESIA: Monitored conscious sedation was given under my supervision, administered via Serafin Bryson. Start time 10:42. End time 11:35. Total of 2 mg of Versed, 25 mcg fentanyl. Precontrast treatment with 125 mg of Solu-Medrol, 50 mg of Zantac, 25 mg of Benadryl. ANTIBIOTICS: Ancef 1 g. INTRAVENOUS FLUIDS: 250 mL. COMPLICATIONS: None. CONDITION: Stable. URINE OUTPUT: Not applicable. SPECIMENS: None. FINDINGS: See below. DRAINS: None. BLOOD LOSS: Less than 10 mL. INDICATIONS: This is a 76-year-old female with past medical history for hypertrophic obstructive cardiomyopathy, left bundle branch block, hypertension, hyperlipidemia, diabetes and prior breast cancer status post lumpectomy with sentinel node biopsy. She was admitted due to some neck pain; however, found to be in high degree intermittent heart block and with her underlying hypertrophic cardiomyopathy, she needs high dose beta blockers. So a dual chamber permanent pacemaker was recommended. CONSENT: Consent was obtained prior to the patient going into the electrophysiology lab. The patient was informed of the risks, benefits and alternatives to the procedure. Risks include but not limited to sudden cardiac , cardiac arrhythmias, cerebrovascular accident, myocardial infarction, injury to the blood vessels, chamber of the heart, injury to the lungs, bleeding and infection. The patient understood these risks and agreed to the procedure as planned. Informed consent was obtained. DESCRIPTION OF THE PROCEDURE: The patient was brought into the electrophysiology lab in a fasting state. She was connected to continuous cardiac monitoring. A timeout was performed to ensure patient's identity and procedure correctly. She received prophylactic antibiotics as well as prophylactic treatment for contrast prior to incision. Vega precautions were maintained throughout the procedure. Moderate conscious sedation was given throughout the procedure under my supervision for patient's comfort level. The patient was prepped and draped over the left infraclavicular space in normal surgical standard fashion. 10 mL of 1% lidocaine, bupivacaine mixture were given in the left deltopectoral groove. Incision was made in the left deltoid groove. Blunt dissection was performed down to identify the cephalic vein; however, none could be identified. So a venogram using 10 mL of contrast diluted in 10 mL of saline, followed by 20 mL flush was used to identify the axillary vein. Axillary vein was accessed with the needle stick without any problems. The guidewire was inserted without any resistance. A long 8-Chinese sheath was then inserted over the guidewire without any resistance. The dilator was removed and a second guidewire was inserted without any resistance for retained venous access. The sheath was then removed, flushed, and dilator reinserted over it and then it was inserted over one of the guidewires without any resistance. The guidewire and dilator removed. The right ventricular pacing lead was then advanced into the right ventricle and positioned into the right ventricular apex under fluoroscopic guidance. There was adequate pacing and sensing thresholds and no diaphragmatic stimulation with high output pacing. The 8-Chinese sheath was peeled away and lead was fixated to pectoralis muscle using 0 silk suture. A second 8-Chinese sheath a long one was inserted without any resistance over the guidewire. The guidewire and dilator were removed. The right atrial pacing lead was advanced into the right atrium and positioned into the right atrial appendage under fluoroscopic guidance using the white preformed J. There was adequate pacing and sensing thresholds and no diaphragmatic stimulation with high output pacing. The 8-Chinese sheath was peeled away and lead was fixated to pectoralis muscle using 0 silk suture. A pacemaker pocket was created over the pectoralis muscle within the pectoralis fascia to create a pacemaker pocket. The pocket was flushed with copious amounts of bacitracin saline wash and inspected for hemostasis. The pulse generator was then attached to the leads, making sure that the pins were in appropriate position, passed the set screws and the set screws were all tightened. The pulse generator was then placed in the pocket, making sure that the leads were lying flat beneath the device. A stay stitch using 0 silk suture was used to secure the device to the pectoralis muscle. The incision was closed in 3-layer fashion using 2-0 Vicryl interrupted suture, followed by 3-0 Vicryl interrupted suture, followed by a 4-0 Monocryl running stitch and Dermabond was applied. EQUIPMENT: 1. Pulse generator is a [employer] DMRI SureScan [id number], serial #[id number]. 2. Right atrial lead MedPerfect Memory 5076-52 cm, serial #[id number]. 3. Right ventricular lead, Medtronic 5076-58 cm, serial #[id number]. INTRAOPERATIVE TESTIN. Right atrial lead: P-wave 3 millivolts, impedance 690 ohms, threshold 0.7 volts at 1 milliamp. 2. Right ventricular lead: R-wave 14.1 millivolts, impedance 963 ohms, threshold 0.4 volts at 0.3 milliamps. FINAL MEASUREMENTS THROUGH THE DEVICE: 1. Right atrial lead: P-waves 3.1 millivolts, impedance 570 ohms, threshold 1 volt at 0.4 milliseconds. 2. Right ventricular lead: R-wave 20 millivolts, impedance 798 ohms, threshold 0.5 volts at 0.4 milliseconds. FINAL PARAMETERS: 1. DDDR 60/130. 2. Right atrial amplitude 3.5 volts, pulse width 0.4 milliseconds, sensitivity 0.3 millivolts. 3. Right ventricular amplitude 3.5 volts, pulse width 0.4 milliseconds, sensitivity 1.2 millivolts. IMPRESSION: Successful implantation of a dual chamber rate responsive permanent pacemaker under fluoroscopic guidance along with peripheral venogram secondary to intermittent complete heart block, left bundle branch block and hypertrophic cardiomyopathy. PLAN: Monitor patient overnight, 12-lead ECG, chest x-ray. She cannot lift her left elbow over the left shoulder for 1 month. She cannot lift more than 10 pounds with the left arm for 2 weeks. She can shower tomorrow, let water run over the incision, do not scrub. We will increase her metoprolol back to the 75 mg daily, and she should have a device and wound check in 7-10 days in our [facility] office. I attest to the content of the Intraoperative Record and any orders documented therein. Any exceptions are noted below. ISATU
--- NOTE | 2017-02-28 18:45 | Progress Note ---
Internal Med Progress Note Date of Service: Feb 28, 2017. Provider Documentation: SUBJECTIVE: s/p dual chamber permanent pacemaker placement today has mild pain at pacemaker placement site , no bleeding or swelling pt being careful not to elevated arm above the shoulder mentions neck pain has improved markedly since pacemaker placement no complain of SOB , no chest discomfort, no palpitation OBJECTIVE: Vital Signs-as noted below Exam: General-no sign of distress Eyes-sclera non icteric ENT-NAD Neck-no JVD Lungs-CTA Heart-regular s1/S2-pacemaker implant site on left upper chest wall -looks well healed , no bleeding or oozing noted , minimum erythema Abdomen-soft, Extremities- no edema Neuro-no focal deficit Lab data as noted below. ASSESSMENT & PLAN: CERVICAL SPINAL STENOSIS /NECK PAIN: presented with severe neck pain 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 Severe intervertebral disc space narrowing noted at C6-C7. No acute fracture or dislocation is identified. Spinal surgery Dr Brennan consulted will need MRI of cervical spine AV BLOCK: -intermittent second degree and high grade first degree AV block s/p permanent pacemaker placement today Metoprolol dose adjusted post pacemaker placement DM TYPE II: -monitor BSG -hold metformin-can be resumed on discharge -insulin SSI HOCM: -has been followed by Cardiology as outpatient for many years ECHO shows -hypertrophic cardiomyopathy , out let track obstruction with systolic anterior motion of mitral leaflet above ECHO finding unchanged form prior -cariology following on Beta jesus and Norvasc ELEVATED TROPONIN: -obtain serial CM -Cardiology consulted, appreciate recommendations -had TTE by Dr. Linares which showed EF 60-65% and findings consistent with HOCM -EKG with LBBB which is chronic for patient HTN: -continue amlodipine DYSLIPIDEMIA: -continue statin BREAST CANCER: -patient takes Femara which will be continued -had imaging recently that was negative -outpatient follow up DISPOSITION expected to be discharged home when medically stable Medicine follow up with Dr Huffman Vital Signs: Date Time Temp Pulse Resp B/P (MAP) Pulse Ox O2 Delivery O2 Flow Rate FiO2 03/01/17 08:43 Room Air 03/01/17 08:00 Room Air 03/01/17 08:00 37.0 70 16 131/70 (90) 96 03/01/17 04:00 Room Air 03/01/17 03:08 36.8 64 18 140/76 (97) 97 Room Air 02/28/17 23:59 Room Air 02/28/17 23:25 36.5 67 20 117/60 (79) 94 Room Air 02/28/17 20:00 Room Air 02/28/17 19:10 36.7 81 21 132/85 (101) 94 Room Air 02/28/17 16:04 36.9 84 16 127/56 (79) 94 Room Air 02/28/17 16:00 Room Air 02/28/17 15:38 37.2 81 15 147/96 (113) 95 Room Air 02/28/17 15:24 Room Air 02/28/17 12:30 36.8 64 15 136/81 (99) 97 Room Air 02/28/17 12:00 97 Room Air 02/28/17 11:50 60 16 114/65 (81) 98 Room Air 02/28/17 11:35 60 16 112/68 (83) 98 Room Air Lab Results: Results Past 24 Hours Test 02/28/17 12:23 02/28/17 12:25 02/28/17 16:06 02/28/17 20:31 Range/Units Lyme Disease IgG Antibody NEG NEG Lyme Disease IgM Antibody NEG NEG Bedside Glucose 150 271 259 70-90 mg/dl Test 03/01/17 06:41 Range/Units Bedside Glucose 180 70-90 mg/dl
[2017-02-28] MEDS ORDERED: ROSUVASTATIN CALCIUM 5 MG TAB PO SCH (20:00)
[2017-02-28] MEDS: ENOXAPARIN 40 MG/0.4 ML SYR SC SCH (21:19)
[2017-03-01 03:08] VITALS: BP 140/76; PULSE 64; TEMP 36.8; O2SAT 97
[2017-03-01] MEDS: ALBUTEROL HFA 8 GM INHALER INH SCH ×4 (04:00→12:25)
[2017-03-01] MEDS: INSULIN ASPART 100 UNITS/ML 3 ML PEN SC SCH ×2 (07:00→12:25)
--- NOTE | 2017-03-01 07:18 | DIAGNOSTIC IMAGING REPORT ---
CHEST 2 VIEWS ROUTINE HISTORY: EXACT TIME ORDERED Evaluate for pneumothorax and lead placement COMPARISON: Chest 02/27/2017. FINDINGS: Interval placement left-sided dual-chamber pacemaker. The leads are intact. No pneumothorax. The lungs are clear. No pleural effusions. The heart is normal in size. Mild to moderate compression deformities within the mid thoracic spine. IMPRESSION: Interval placement of a left-sided dual-chamber pacemaker. No pneumothorax. Electronically signed by: Jcarlos Magana M.D. 03/01/2017 7:17 AM Dictated Date/Time: 03/01/2017 7:15 AM
[2017-03-01 08:00] VITALS: BP 131/70; PULSE 70; TEMP 37; O2SAT 96
[2017-03-01] MEDS: AMLODIPINE BESYLATE 5 MG TAB PO SCH (08:25)
[2017-03-01] MEDS: OXYBUTYNIN CHLORIDE 5 MG TABCR PO SCH (08:25)
[2017-03-01] MEDS ORDERED: METOPROLOL SUCC 50MG EXT REL TAB PO SCH ×2 (09:00→21:00)
--- NOTE | 2017-03-01 09:20 | Cardiology Follow-Up ---
Subjective General Date of Service: Mar 01, 2017. Chief Complaint: Status post pacemaker Pt evaluation today including: conversation w/ patient, physical exam, chart review, lab review, review of studies, review of inpatient medication list History of Present Illness Patient seen and examined. Feels well "100% better." Neck pain is considerably better. Notes improvement in dyspnea. Mild incisional (left subclavian area) pain yesterday, now resolved. No chest pain. No palpitations. No orthopnea, PND , or edema. No fevers or chills. Status post February 28, 2017 dual chamber pacemaker implantation. Device interrogation this AM reveals an appropriately functioning Variable Advisa MRI [id number] dual chamber pacemaker with [id number] CapSureFix Novus MRI leads. Mode: DDDR, 60-130 bpm. Telemetry: Predominately -BARREL [employer]ADER [employer] CLE[employer]ER. Intermittent atrial pacing. 6-beat run of wide complex tachycardia consistent with VT at 15:18:13 on 02/28/2017. Currently ventricular paced at 82 bpm. Chest x-ray this morning reveals appropriate lead position. No pneumothorax. Clear lungs. No pleural effusion. Allergies Coded Allergies: Iodine (Verified Allergy, Unknown, HIVES, 07/01/14) Niacin (Verified Allergy, Unknown, HIVES, 07/01/14) SHELLFISH (Verified Allergy, Unknown, HIVES, 07/01/14) Social History Smoking Status: Never Smoker Hx Tobacco Use In Past Year?: No Hx Alcohol Use - Type And Amou: No Hx Substance Use - Type And Am: No Problem List Medical Problems: (1) Neck pain Status: Acute Physical Exam Vital Signs Last Vital Signs Documentation Date Time Temp Pulse Resp B/P (MAP) Pulse Ox O2 Delivery O2 Flow Rate FiO2 03/01/17 08:43 Room Air 03/01/17 08:00 37.0 70 16 131/70 (90 96 Physical Exam Constitutional: General Apperance: heathly-appearing Level of Distress: NAD Psychiatric: Mental Status: active & alert Orientation: to time, to place, to person Memory: recent memory normal, remote memory normal Head: normocephalic, atraumatic Eyes: Pupils: PERRLA Lungs: Respiratory effort: no dyspnea Auscultation: breath sounds normal, no wheezing, no rales/crackles, no rhonchi, decreased breath sounds Cardiovascular: Heart Auscultation: bradycardia, III/ RAJNI, pertinent finding (There is mild normal erythema around the incision. No hematoma. No evidence of infection or bleeding. ) Abdomen: Bowel Sounds: normal Inspection & Palpation: soft, non-distended, no masses Liver: non-tender Extremities: no cyanosis, no edema, no clubbing Neurologic: Cranial Nerves: grossly intact Assessment and Plan Assessment and Plan 76-year-old female with history of HOCM as well as left breast cancer, presenting on February 27, 2017 with predominant symptoms of severe musculoskeletal neck pain. EKG and telemetry demonstrated her known chronic left bundle branch block as well as high degree AV block status post February dual chamber pacemaker implantation without complication. Amlodipine dosing will be reduced from 5 mg/day to 2.5 mg/day, concurrently increasing Toprol XL dosing to 75 mg twice a day given history, echo and telemetry findings , and symptoms. Arrangements are being made for pacemaker clinic evaluation in one week at [facility] and cardiology follow-up (Kodak Linares) at the time of her 7 week device interrogation. Cardiology attending: Pt seen and examined, agree with findings and assessment as per Sam Anthony. Pt tolerated pacer implant well. Toprol uptitrated, tolerating well, should also decrease dyspnea. Amlodipine decreased to allow for Toprol uptitration. Ok to d/c to home from cardiac standpoint. Device clinic follow up as outpatient. Laboratory Results Last 24 Hours Test 02/28/17 09:52 02/28/17 12:23 02/28/17 12:25 02/28/17 16:06 Total Creatine Kinase 59 U/L Creatine Kinase MB 1.2 ng/ml Creatine Kinase MB Ratio 2.0 Troponin I 0.111 ng/ml Thyroid Stimulating Hormone (TSH) 3.070 uIu/ml Lyme Disease IgG Antibody NEG Lyme Disease IgM Antibody NEG Bedside Glucose 150 mg/dl 271 mg/dl Test 02/28/17 20:31 03/01/17 06:41 Bedside Glucose 259 mg/dl 180 mg/dl
[2017-03-01] MEDS ORDERED: METO25TA3 PO (10:15)
[2017-03-01] MEDS ORDERED: METO1TAB66 PO (10:15)
[2017-03-01] MEDS ORDERED: NRV5 PO (10:15)
--- NOTE | 2017-03-01 10:17 | Discharge Instructions ---
Discharge Instructions Date of Service Mar 01, 2017. Admission Reason for Admission: 2ND Degree Av Block, Neck Pain Discharge Discharge Diagnosis / Problem: NECK PAIN /HEART BLOCK /PACEMAKER PLACEMENT Discharge Goals Goal(s): Decrease discomfort, Improve disease control, Diagnostic testing, Therapeutic intervention Activity Recommendations Activity Limitations: as noted below Lifting Limitations: no more than 5 pounds (ON LEFT HAND FOR 2 WEEKS ) Exercise/Sports Limitations: until after follow-up appointment May Resume Sexual Activity: after follow-up appointment Shower/Bathe: keep incision dry Driving or Machine Use: SEE NOTE ACTIVITY RECOMMENDATIONS: * Do not raise affected arm over head for 2 weeks. SPECIAL CARE INSTRUCTIONS: * If bleeding occurs, apply direct pressure to area for 5 minutes. * Call your doctor if you have severe pain, fever, drainage or bleeding at site. * Keep dressing on and dry for 48 hours then remove. * Keep any scheduled doctor's appointment. * Implant Card - hand held device with website information given. SKIN IRRITATION: * You may experience some redness and/or swelling in the area where radiation was administered. If any skin irritation occurs, please contact your family physician. FOLLOW UP VISIT: Keep scheduled doctor appointments. 03/08/2017 10:00 AM Pacer Clinic [facility] Cardiology, [facility] . Instructions / Follow-Up Instructions / Follow-Up HOSPITAL FOLLOW UP on 03/09/2017 @ 2:[address] Reuben Huffman MD Internal Medicine [facility] CARDIOLOGY FOLLOW UP on 04/18/2017 @ 1:[address] Juan Linares MD Cardiology [facility] PACE MAKER [facility] FOLLOW UP device check in 1-2 weeks. S/p Implant 02/28/17 Date & Time Provider Department Encounter # 03/08/2017 10:00 AM Pacer Clinic [facility] Cardiology, [facility] SPINAL ORTHOPEDICS FOLLOW UP WITH DR ANNABEL KU FOR NECK PAIN IN 3-4 WEEKS PLEASE CALL OFFICE FOR APPOINTMENT MEDICATION CHANGES : NORVASC DOSE REDUCED TO 2.5 MG DAILY ( WAS ON 5 MG DAILY ) TOPROL XL 75 MG TWICE DAILY Current Hospital Diet Patient's current hospital diet: AHA Diet (Heart Healthy) Discharge Diet Recommended Diet: AHA Diet (Heart Healthy) Procedures Procedures Performed: DUAL CHAMBER RATE RESPONSIVE PERMANENT PACEMAKER WITH PERIPHERAL VENOGRAM Pending Studies Studies pending at discharge: yes List of pending studies: MRI OF CERVICAL SPINE Medical Emergencies . Who to Call and When: Medical Emergencies: If at any time you feel your situation is an emergency, please call 911 immediately. . Non-Emergent Contact Non-Emergency issues call your: Primary Care Provider . . "Provider Documentation" section prepared by Anna Silva. . VTE Core Measure Inpt VTE Proph given/why not?: Unfractionated heparin SQ
[2017-03-01 11:10] VITALS: BP 143/81; PULSE 63; TEMP 36.5; O2SAT 96
--- NOTE | 2017-03-01 13:27 | Orthopedic Consultation ---
Orthopedic Consultation Date of Consultation: Mar 01, 2017. Attending Physician: Anna Silva M.D. Reason for Consultation: Cervicalgia History of Present Illness Patient describes a history of chronic cervicalgia. She denies any precipitating trauma fall or event. She's been treated over the years with a chiropractor. She denies any injections recent physical therapy. Upon further questioning she denies any Lhermitte's phenomenon or radicular complaints She denies any numbness or tingling in the upper extremities. She denies any coordination deficits involving her hands. Past Medical/Surgical History Medical Problems: (1) Neck pain Status: Acute Social History Smoking Status: Never Smoker Marital Status: Occupation Status: retired Allergies Coded Allergies: Iodine (Verified Allergy, Unknown, HIVES, 07/01/14) Niacin (Verified Allergy, Unknown, HIVES, 07/01/14) SHELLFISH (Verified Allergy, Unknown, HIVES, 07/01/14) Home Medications Scheduled Albuterol Hfa (Ventolin Hfa), 2 PUFFS INH Q4H Amlodipine (Norvasc), 5 MG PO DAILY Amlodipine Besylate (Amlodipine Besylate), 2.5 MG PO DAILY Metformin Hcl (Glucophage), 1,000 MG PO BID Metoprolol Succ (Toprol Xl) (Toprol-Xl), 50 MG PO BID Metoprolol Succinate (Toprol Xl), 1 TAB PO BID Metoprolol Succinate (Toprol Xl), 1 TAB PO BID Oxybutynin Chloride Er (Ditropan Xl), 10 MG PO DAILY Rosuvastatin Calcium (Crestor), 5 MG PO QOD Miscellaneous Medications Letrozole (Femara), 2.5 MG PO Current Inpatient Medications Current Inpatient Medications Medications (Trade) Dose Ordered Sig/Abe Route Start Time Stop Time Status Last Admin Dose Admin Enoxaparin Sodium (Lovenox Inj) 40 mg Q24H SC 02/27/17 20:00 03/29/17 19:59 02/28/17 21:19 40 MG Acetaminophen (Tylenol Tab) 650 mg Q4H PRN PO 02/27/17 17:00 03/29/17 16:59 02/27/17 23:40 650 MG Ondansetron HCl (Zofran Inj) 4 mg Q6H PRN IV 02/27/17 17:00 03/29/17 16:59 Polyethylene (Miralax Powder Packet) 17 gm DAILY PRN PO 02/27/17 17:00 03/29/17 16:59 Albuterol (Ventolin Hfa Inhaler) 2 puffs Q4H INH 02/27/17 20:00 03/29/17 19:59 03/01/17 12:25 2 PUFFS Oxybutynin Chloride (Ditropan-Xl Tab) 10 mg DAILY PO 02/28/17 09:00 03/30/17 08:59 03/01/17 08:25 10 MG Rosuvastatin Calcium (Crestor Tab) 5 mg Q2D@1999 PO 02/28/17 20:00 03/30/17 19:59 02/28/17 21:18 5 MG Insulin Aspart (novoLOG ASPART) SLIDING SCALE If C... ACHS SC 02/28/17 07:00 03/30/17 06:59 03/01/17 12:25 1 UNITS Glucose (Glucose 40% Gel) 15-30 GRAMS 15 GRAMS... UD PRN PO 02/27/17 22:30 03/29/17 22:29 Glucose (Glucose Chew Tab) 4-8 Tablets 4 Tabl... UD PRN PO 02/27/17 22:30 03/29/17 22:29 Dextrose (Dextrose 50% 50ML Syringe) 25-50ML OF 50% DW IV FOR... UD PRN IV 02/27/17 22:30 03/29/17 22:29 Glucagon (Glucagon Inj) 1 mg UD PRN SQ 02/27/17 22:30 03/29/17 22:29 Acetaminophen/ Codeine Phosphate (Tylenol w/ Codeine #3 Tab) 1 tab for pain scale 4-6 2 t... Q4H PRN PO 02/28/17 12:00 03/30/17 11:59 Acetaminophen (Tylenol Tab) 650 mg Q4H PRN PO 02/28/17 12:00 03/30/17 11:59 Amlodipine Besylate (Norvasc Tab) 2.5 mg DAILY PO 03/02/17 09:00 03/30/17 08:59 Metoprolol Succinate (Toprol Xl Tab) 75 mg BID PO 03/01/17 21:00 03/29/17 20:59 Physical Exam Date Time Temp Pulse Resp B/P (MAP) Pulse Ox O2 Delivery O2 Flow Rate FiO2 03/01/17 12:00 Room Air 03/01/17 11:10 36.5 63 20 143/81 (101) 96 Room Air 03/01/17 10:38 Room Air 03/01/17 08:43 Room Air 03/01/17 08:00 Room Air 03/01/17 08:00 37.0 70 16 131/70 (90) 96 03/01/17 04:00 Room Air 03/01/17 03:08 36.8 64 18 140/76 (97) 97 Room Air 02/28/17 23:59 Room Air 02/28/17 23:25 36.5 67 20 117/60 (79) 94 Room Air 02/28/17 20:00 Room Air 02/28/17 19:10 36.7 81 21 132/85 (101) 94 Room Air 02/28/17 16:04 36.9 84 16 127/56 (79) 94 Room Air 02/28/17 16:00 Room Air 02/28/17 15:38 37.2 81 15 147/96 (113) 95 Room Air 02/28/17 15:24 Room Air Patient ambulates with a narrow steady gait. She exhibits good strength testing bilateral upper extremities. She is relatively full range of motion of the cervical spine without evidence of radicular complaint irradiate radiation of pain. She does not exhibit any significant pain to palpation of the paracervical musculature. Laboratory Results Last 24 Hours Test 02/28/17 16:06 02/28/17 20:31 03/01/17 06:41 03/01/17 11:21 Bedside Glucose 271 mg/dl 259 mg/dl 180 mg/dl 203 mg/dl Assessment & Plan Assessment cervical spondylosis. Plan at this time a majority of her symptom complex is most likely related to her cervical arthritis. Do not appreciate any evidence of cervical stenosis or radiculopathy. I recommend that she follow -up with her local interventional pain management physician. Cervical facet injections versus trigger point injections would probably be of great serviced to her. There is no indication for surgical intervention at this time.
[2017-03-01 14:53] VITALS: BP 143/81; PULSE 63; TEMP 36.5; O2SAT 96
--- NOTE | 2017-03-01 16:15 | Discharge Summary ---
Discharge Summary Date of Service Mar 01, 2017. Discharge Summary Admission Date: Feb 27, 2017 at 16:49 Discharge Date: Mar 01, 2017 Discharge Disposition: Home Principal Diagnosis: NECK PAIN /HEART BLOCK /PACEMAKER PLACEMENT Procedures: Procedures Performed: DUAL CHAMBER RATE RESPONSIVE PERMANENT PACEMAKER WITH PERIPHERAL VENOGRAM ECHO : 02/27/2017 : The left ventricle is normal in size. The echo findings are consistent with hypertrophic cardiomyopathy. There is severe asymmetric left ventricular hypertrophy involving the septum. The echo findings are consistent with left ventricular outflow obstruction with peak LVOT velocity of 5.1 m/sec. There is systolic anterior motion of the mitral valve. The aortic valve opens well. There is mild mitral regurgitation. The aortic root is normal size. Ascending aorta of normal dimension There is no pericardial effusion. Consultations: [facility] CARDIOLOGY DR WALDEN /KRISTINA PEDERSON PA-C EP CARDIOLOGY DR GAY Medication Reconciliation New Medications: Metoprolol Succinate (Toprol Xl) 25 Mg Tabcr 1 TAB PO BID for 30 Days, #60 TAB 5 Refills Toprol XL 75 mg twice daily Metoprolol Succinate (Toprol Xl) 50 Mg Tab 1 TAB PO BID for 30 Days, #60 TAB 5 Refills Toprol XL 75 mg twice daily Amlodipine Besylate (Amlodipine Besylate) 5 Mg Tab 2.5 MG PO DAILY for 30 Days, #15 TAB 2 Refills Continued Medications: Albuterol Hfa (Ventolin Hfa) 200 Puffs/70401 Mcg Aers 2 PUFFS INH Q4H Letrozole (Femara) 2.5 Mg Tab 2.5 MG PO, TAB Metformin Hcl (Glucophage) 1,000 Mg Tab 1000 MG PO BID, TAB Oxybutynin Chloride Er (Ditropan Xl) 10 Mg Tab 10 MG PO DAILY, TAB Rosuvastatin Calcium (Crestor) 5 Mg Tab 5 MG PO QOD, TAB Discontinued Medications: Amlodipine (Norvasc) 5 Mg Tab 5 MG PO DAILY, TAB Metoprolol Succ (Toprol Xl) (Toprol-Xl) 50 Mg Tabcr 50 MG PO BID, #30 TAB Referrals At Discharge Follow up Referrals: Orthopedics Referral - Please Call For Appointment with Cortes Brnenan D.O. Admission Information HPI (per Admitting provider): Patient is a pleasant 76 yo female who came to the ER after being seen at [facility] ER and having found an elevated troponin. The patient preferred to come here as her Senior Staff Consultant Dr. Linares is here. She was actually seen at [place] for neck pain, which she gets occasionally but was particularly bothersome today. 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 No prior imaging of her neck in outpatient records. The patient states the pain was symmetric on the back of her neck up to the base of her skull, and also paraspinal and along bilateral SCM muscles. She feels the pain has improved slightly since being receiving pain medication. While at [place] the patient had labs and an EKG and there was concern over LBBB with an elevated troponin, and they were planning to transfer the patient to [place] for Cardiac evaluation when the patient and her family left and came to [facility] as mentioned above. Otherwise the patient has no complaints of CP, SOB, palpitations, arm pain, diaphoresis, cough, BENSON, lightheadedness. She reports occasional dizziness as with abrupt positional changes but denies any near syncope or falls. No recent infection. No new medication changes. Has been tolerating PO without and N/V or changes to bowel habit. Denies any melena or hematochezia. Denies any urinary symptoms. She denies any pain or weakness radiating down her extremities. No bowel or bladder incontinence. No gait dysfunction. Physical Exam (per Admitting): General Appearance: WD/WN, no apparent distress Head: normocephalic, atraumatic Eyes: PERRL, EOMI, sclerae normal ENT: hearing grossly normal Neck: supple, no adenopathy, no JVD, trachea midline Respiratory/Chest: chest non-tender, lungs clear, normal breath sounds, no respiratory distress, no accessory muscle use Cardiovascular: no edema, no gallop, no JVD, normal peripheral pulses, + bradycardia, + systolic murmur, + irregularly irregular Abdomen/GI: normal bowel sounds, non tender, soft, no organomegaly Back: no CVA tenderness, no muscle spasm, + decreased range of motion, + paravertebral tenderness (cervical spine) Extremities/Musculoskelatal: no calf tenderness, normal capillary refill, no pedal edema Neurologic/Psych: no motor/sensory deficits, alert, normal mood/affect, oriented x 3 Skin: normal color, warm/dry, no rash Hospital Course feels fine , no pain or discomfort at pacemaker site no SOB or palpitation pain in neck region has almost resolved evaluated by Cardiology and Orthopedics today stable to be discharged home P/E: General-no sign of distress Eyes-sclera non icteric ENT-NAD Neck-no JVD Lungs-CTA Heart-regular s1/S2-pacemaker implant site on left upper chest wall -looks well healed , no bleeding or oozing noted , minimum erythema Abdomen-soft, Extremities- no edema Neuro-no focal deficit a/p : CERVICAL SPINAL STENOSIS /NECK PAIN: presented with severe neck pain 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 Severe intervertebral disc space narrowing noted at C6-C7. No acute fracture or dislocation is identified. Spinal surgery Dr Brennan consulted appreciate input : pt's chronic neck pain possible due to DJD , no cervical radiculopathy noted recommend out pt follow up for pain control -Cervical facet joint injection versus trigger point injection AV BLOCK: -intermittent second degree and high grade first degree AV block s/p dual chamber [employer] permanent pacemaker DDDR placement on 02/28/17 recovering well , Cxray this am shows pacemaker leads in adequate position , no pneumothorax pacemaker interrogation -shows appropriate function Metoprolol dose adjusted post pacemaker placement increased to prior dose of 75 mg PO BID pt is scheduled to have post pace maker check up /follow up at [facility] Pacer clinic next week ( 03/08/17 @ 10 am ) DM TYPE II: -monitor BSG -hold metformin- will be resumed on discharge -insulin SSI HOCM: -has been followed by Cardiology as outpatient for many years ECHO shows -hypertrophic cardiomyopathy , out let track obstruction with systolic anterior motion of mitral leaflet above ECHO finding unchanged form prior -cariology following on Beta jesus and Norvasc dose reduced to 2.5 mg daily ELEVATED TROPONIN: -no evidence of ACS , possible demand ischemia , is setting of HOCM /out flow tract obstruction /bradycardia /heart block -Cardiology consulted, appreciate recommendations -had TTE by Dr. Linares which showed EF 60-65% and findings consistent with HOCM -EKG with LBBB which is chronic for patient HTN: -continue amlodipine DYSLIPIDEMIA: -continue statin BREAST CANCER: -patient takes Femara which will be continued -had imaging recently that was negative -outpatient follow up DISPOSITION stable to be discharged home today Medicine follow up with Dr Huffman Total time spent on discharge = 35 mins This includes examination of the patient, discharge planning, medication reconciliation, and communication with other providers. Discharge Instructions Discharge Instructions Date of Service Mar 01, 2017. Admission Reason for Admission: 2ND Degree Av Block, Neck Pain Discharge Discharge Diagnosis / Problem: NECK PAIN /HEART BLOCK /PACEMAKER PLACEMENT Discharge Goals Goal(s): Decrease discomfort, Improve disease control, Diagnostic testing, Therapeutic intervention Activity Recommendations Activity Limitations: as noted below Lifting Limitations: no more than 5 pounds (ON LEFT HAND FOR 2 WEEKS ) Exercise/Sports Limitations: until after follow-up appointment May Resume Sexual Activity: after follow-up appointment Shower/Bathe: keep incision dry Driving or Machine Use: SEE NOTE ACTIVITY RECOMMENDATIONS: * Do not raise affected arm over head for 2 weeks. SPECIAL CARE INSTRUCTIONS: * If bleeding occurs, apply direct pressure to area for 5 minutes. * Call your doctor if you have severe pain, fever, drainage or bleeding at site. * Keep dressing on and dry for 48 hours then remove. * Keep any scheduled doctor's appointment. * Implant Card - hand held device with website information given. SKIN IRRITATION: * You may experience some redness and/or swelling in the area where radiation was administered. If any skin irritation occurs, please contact your family physician. FOLLOW UP VISIT: Keep scheduled doctor appointments. 03/08/2017 10:00 AM Pacer Clinic [facility] Cardiology, [facility] . Instructions / Follow-Up Instructions / Follow-Up HOSPITAL FOLLOW UP on 03/09/2017 @ 2:[address] Reuben Huffman MD Internal Medicine [facility] CARDIOLOGY FOLLOW UP on 04/18/2017 @ 1:[address] Juan Linares MD Cardiology [facility] FOLLOW UP device check in 1-2 weeks. S/p Implant 02/28/17 Date & Time Provider Department Encounter # 03/08/2017 10:00 AM Pacer Clinic [facility] Cardiology, [facility] SPINAL ORTHOPEDICS FOLLOW UP WITH DR CORTES BRENNAN FOR NECK PAIN IN 3-4 WEEKS PLEASE CALL OFFICE FOR APPOINTMENT MEDICATION CHANGES : NORVASC DOSE REDUCED TO 2.5 MG DAILY ( WAS ON 5 MG DAILY ) TOPROL XL 75 MG TWICE DAILY Current Hospital Diet Patient's current hospital diet: AHA Diet (Heart Healthy) Discharge Diet Recommended Diet: AHA Diet (Heart Healthy) Procedures Procedures Performed: DUAL CHAMBER RATE RESPONSIVE PERMANENT PACEMAKER WITH PERIPHERAL VENOGRAM Pending Studies Studies pending at discharge: yes List of pending studies: MRI OF CERVICAL SPINE Medical Emergencies . Who to Call and When: Medical Emergencies: If at any time you feel your situation is an emergency, please call 911 immediately. . Non-Emergent Contact Non-Emergency issues call your: Primary Care Provider . . "Provider Documentation" section prepared by Anna Silva. . VTE Core Measure Inpt VTE Proph given/why not?: Unfractionated heparin SQ Additional Copies To Reuben Huffman M.D., Michael G., DO
[2017-03-02] MEDS ORDERED: AMLODIPINE BESYLATE 5 MG TAB PO SCH (09:00)
== END 2017-03-01 15:55 | disposition home or self-care (01) | DRG 243 ==
LOC: C.EDB 14:07 → C.2E 16:49 → ENRESERV 17:05
PROVIDERS: ADMIT Internal Medicine; ATTEND Hospitalist
PROC: 02H63JZ Insertion of Pacemaker Lead into Right Atrium, Percutaneous Approach (ICD-10-PCS; principal; 2017-02-28 10:34)
PROC: 0JH636Z Insertion of Pacemaker, Dual Chamber into Chest Subcutaneous Tissue and Fascia, Percutaneous Approach (ICD-10-PCS; principal; 2017-02-28 10:34)
PROC: 02HK3JZ Insertion of Pacemaker Lead into Right Ventricle, Percutaneous Approach (ICD-10-PCS; principal; 2017-02-28 10:34)
DX: I45.5 Other specified heart block (principal); I42.1 Obstructive hypertrophic cardiomyopathy; E11.9 Type 2 diabetes mellitus without complications; I10 Essential (primary) hypertension; E78.5 Hyperlipidemia, unspecified; C50.919 Malignant neoplasm of unspecified site of unspecified female breast; M48.02 Spinal stenosis, cervical region; Z79.84 Long term (current) use of oral hypoglycemic drugs; Z79.899 Other long term (current) drug therapy